=== PATIENT | male | born 1970 | race Caucasian/White ===

== ENCOUNTER 2017-06-12 13:33 | Emergency (ER) | payer MEDICAID ==
[~2017-06-12] VITALS: Ht 172.7 cm; Wt 80.0 kg
[2017-06-12] MEDS ORDERED: SODIUM CHLORIDE 0.9% 1,000 ML IV ONE (15:25)
[2017-06-12 16:08] LABS: BASOPHILS % 0.9 % (0.0-2.0); EOSINOPHILS % 0.6 % (0.0-5.0); HEMATOCRIT. 42.7 % (42.0-52.0); HEMOGLOBIN. 14.3 g/dL (14.0-18.0); LYMPHOCYTES % 35.3 % (20.0-50.0); MEAN CORPUSCULAR HEMOGLOBIN 31.5 pg (28.0-32.0); MEAN CORPUSCULAR VOLUME 94.3 fL (80.0-94.0); MEAN PLATELET VOLUME 7.5 fl (7.4-10.4); MONOCYTES % 3.4 % (2.0-8.0); NEUTROPHILS % 59.8 % (40.0-76.0); PLATELET 213 x1000/uL (130-400); RED BLOOD CELL COUNT 4.52 mill/uL (4.7-6.1); RED CELL DISTRIBUTION WIDTH 14.8 % (11.6-14.6)
[2017-06-12 16:18] LABS: CARBON DIOXIDE 23 mEq/L (21-32); CHLORIDE 110 mEq/L (98-107)
[2017-06-12 16:27] LABS: ETHANOL BLOOD 374 mg/dL
[2017-06-12 18:52] LABS: CLARITY URINE CLEAR (CLEAR); COLOR URINE YELLOW (YELLOW); GLUCOSE URINE NEGATIVE (NEGATIVE); KETONES URINE NEGATIVE (NEGATIVE); LEUKOCYTE ESTERASE URINE NEGATIVE (NEGATIVE); NITRITE URINE NEGATIVE (NEGATIVE); OCCULT BLOOD URINE NEGATIVE (NEGATIVE); PROTEIN URINE NEGATIVE (NEGATIVE); SPECIFIC GRAVITY URINE 1.018 (1.005-1.030); UROBILINOGEN URINE 0.2 E.U./dL (0.2-1.0)
[2017-06-12 19:10] LABS: *AMPHETAMINES SCREEN URINE NEGATIVE (NEGATIVE); *BARBITURATES SCREEN URINE NEGATIVE (NEGATIVE); *BENZODIAZEPINES SCREEN URINE NEGATIVE (NEGATIVE); *COCAINE SCREEN URINE NEGATIVE (NEGATIVE); CANNABINOID URINE SCREEN NEGATIVE (NEGATIVE); METHADONE URINE SCREEN NEGATIVE (NEGATIVE); OPIATES URINE SCREEN NEGATIVE (NEGATIVE); PHENCYCLIDINE URINE SCREEN NEGATIVE (NEGATIVE)
[2017-06-12] MEDS ORDERED: ONDANSETRON HCL 4MG/2ML VIAL IV ONE (19:30)
[2017-06-12 21:30] VITALS: BP 112/59
== END 2017-06-12 21:45 | disposition home or self-care (01) ==
LOC: ER 13:35
DX: F10.229 Alcohol dependence with intoxication, unspecified (principal); E83.51 Hypocalcemia; F17.210 Nicotine dependence, cigarettes, uncomplicated; Y90.9 Presence of alcohol in blood, level not specified
CPT/HCPCS: 36415; 80048; 80305; 81003; 85025; 96361; 96374; 99284; G0482; J2405; J7030

== ENCOUNTER 2017-08-20 22:36 | Emergency (ER) | payer SELFPAY ==
[~2017-08-20] VITALS: Ht 165.1 cm; Wt 68.0 kg
[2017-08-20] MEDS ORDERED: MAGNESIUM/ALUMINUM HYDROXIDE/SIMETHICONE 30ML UDC PO STA (23:42)
[2017-08-20] MEDS ORDERED: ONDANSETRON HCL 4MG/2ML VIAL IV STA (23:42)
[2017-08-20] MEDS ORDERED: FAMOTIDINE 20MG/2ML VIAL IV STA (23:42)
[2017-08-21 02:08] VITALS: BP 118/70
== END 2017-08-21 02:11 | disposition home or self-care (01) ==
LOC: ER 22:55
DX: F10.129 Alcohol abuse with intoxication, unspecified (principal); Y90.9 Presence of alcohol in blood, level not specified
CPT/HCPCS: 99283

== ENCOUNTER 2019-05-22 10:40 | Inpatient (IN) | payer OTHER, MEDICAID ==
[~2019-05-22] VITALS: Ht 167.6 cm; Wt 67.6 kg
[2019-05-22] MEDS ORDERED: LORAZEPAM 2MG/ML CPJ IV ONE (11:00)
[2019-05-22] MEDS ORDERED: CHLORDIAZEPOXIDE 25MG CAPSULE PO ONE (11:00)
[2019-05-22 11:13] LABS: BASOPHILS % 1.3 % (0.0-2.0); EOSINOPHILS % 0.7 % (0.0-5.0); HEMATOCRIT. 26.1 % (42.0-52.0); HEMOGLOBIN. 8.2 g/dL (14.0-18.0); LYMPHOCYTES % 27.1 % (20.0-50.0); MEAN CORPUSCULAR HEMOGLOBIN 22.5 pg (28.0-32.0); MEAN CORPUSCULAR VOLUME 71.7 fL (80.0-94.0); MEAN PLATELET VOLUME 8.3 fl (7.4-10.4); MONOCYTES % 12.1 % (2.0-8.0); NEUTROPHILS % 58.8 % (40.0-76.0); PLATELET 71 x1000/uL (130-400); RED BLOOD CELL COUNT 3.64 mill/uL (4.7-6.1)
[2019-05-22 11:16] LABS: CHLORIDE 93 mEq/L (98-107)
[2019-05-22 11:22] LABS: ETHANOL BLOOD < 10 mg/dL
[2019-05-22 11:41] LABS: PLATELET ESTIMATE DECREASED
[2019-05-22] MEDS ORDERED: POTASSIUM CHLORIDE 20MEQ TABLET SR PO ONE (12:15)
[2019-05-22 12:30] LABS: CLARITY URINE CLOUDY (CLEAR); COLOR URINE ORANGE (YELLOW); KETONES URINE TRACE (NEGATIVE); LEUKOCYTE ESTERASE URINE 1+ (NEGATIVE); NITRITE URINE POSITIVE (NEGATIVE); OCCULT BLOOD URINE NEGATIVE (NEGATIVE); PROTEIN URINE 3+ (NEGATIVE)
[2019-05-22 12:53] LABS: *AMPHETAMINES SCREEN URINE NEGATIVE (NEGATIVE); *BARBITURATES SCREEN URINE NEGATIVE (NEGATIVE)
[2019-05-22 12:56] LABS: *BENZODIAZEPINES SCREEN URINE NEGATIVE (NEGATIVE); *COCAINE SCREEN URINE NEGATIVE (NEGATIVE); CANNABINOID URINE SCREEN NEGATIVE (NEGATIVE); METHADONE URINE SCREEN NEGATIVE (NEGATIVE); OPIATES URINE SCREEN NEGATIVE (NEGATIVE); PHENCYCLIDINE URINE SCREEN NEGATIVE (NEGATIVE)
[2019-05-22] MEDS ORDERED: ACETAMINOPHEN 325MG TABLET PO PRN (14:15)
[2019-05-22] MEDS ORDERED: ONDANSETRON HCL 4MG/2ML INJ IV PRN (14:15)
[2019-05-22] MEDS ORDERED: LORAZEPAM 2MG/ML CPJ IV PRN (14:15)
[2019-05-22] MEDS ORDERED: CLONIDINE 0.1MG TABLET PO PRN (14:15)
[2019-05-22] MEDS ORDERED: MULTIVITAMINS,THER W-MINERALS TABLET PO SCH (16:00)
[2019-05-22] MEDS ORDERED: DEXT 5%/0.45% NACL KCL 10MEQ/L 1,000 ML IV SCH (17:30)
[2019-05-22 22:00] VITALS: BP 122/89
[2019-05-23] VITALS: BP 110/80
[2019-05-23 04:00] VITALS: BP 100/69
[2019-05-23] MEDS ORDERED: ONDANSETRON HCL 4MG/2ML INJ IV PRN (08:30)
[2019-05-23] MEDS ORDERED: ACETAMINOPHEN 325MG TABLET PO PRN (08:30)
[2019-05-23] MEDS ORDERED: CLONIDINE 0.1MG TABLET PO PRN (08:30)
[2019-05-23] MEDS ORDERED: LORAZEPAM 2MG/ML CPJ IV PRN (08:45)
[2019-05-23] MEDS ORDERED: MULTIVITAMINS,THER W-MINERALS TABLET PO SCH (09:00)
[2019-05-23 09:25] LABS: BASOPHILS % 0.7 % (0.0-2.0); EOSINOPHILS % 1.3 % (0.0-5.0); HEMATOCRIT. 24.1 % (42.0-52.0); HEMOGLOBIN. 7.6 g/dL (14.0-18.0); LYMPHOCYTES % 31.4 % (20.0-50.0); MEAN CORPUSCULAR HEMOGLOBIN 22.7 pg (28.0-32.0); MEAN CORPUSCULAR VOLUME 72.2 fL (80.0-94.0); MEAN PLATELET VOLUME 8.5 fl (7.4-10.4); MONOCYTES % 6.2 % (2.0-8.0); NEUTROPHILS % 60.4 % (40.0-76.0); PLATELET 79 x1000/uL (130-400); RED BLOOD CELL COUNT 3.34 mill/uL (4.7-6.1); RED CELL DISTRIBUTION WIDTH 23.7 % (11.6-14.6)
[2019-05-23 09:31] LABS: CHLORIDE 98 mEq/L (98-107)
[2019-05-23] MEDS ORDERED: POTASSIUM CHLORIDE 20MEQ TABLET SR PO SCH (11:00)
[2019-05-23 13:19] VITALS: BP 113/80
== END 2019-05-23 14:10 | disposition home or self-care (01) | DRG 53 ==
LOC: ER 10:40 → UNDOADMIN 12:46 → 5WST 12:46 → ENRESERV 14:01 → SUPCPDRO 14:12 → 6EST 14:16 → ER 15:41 → EDBEDREQSVC 19:25 → EDBEDREQTM 19:50 → ENRESERV 21:29
PROVIDERS: ADMIT Hospitalist; ATTEND Hospitalist
DX: G40.909 Epilepsy, unspecified, not intractable, without status epilepticus (principal); D61.818 Other pancytopenia; D69.6 Thrombocytopenia, unspecified; E83.51 Hypocalcemia; F10.239 Alcohol dependence with withdrawal, unspecified; N39.0 Urinary tract infection, site not specified; Y90.9 Presence of alcohol in blood, level not specified
CPT/HCPCS: 36415; 71045; 80305; 80320; 81003; 93005; 99285; J2060; G0480

== ENCOUNTER 2020-01-05 22:48 | Inpatient (IN) | payer SELFPAY ==
[~2020-01-05] VITALS: Ht 172.7 cm; Wt 66.8 kg
[2020-01-05] MEDS ORDERED: SODIUM CHLORIDE 0.9% 1,000 ML IV ONE (23:12)
[2020-01-05] MEDS ORDERED: LEVETIRACETAM 1000MG/100ML 100 ML IV ONE (23:15)
[2020-01-05] MEDS ORDERED: ONDANSETRON HCL 4MG/2ML INJ IV STA (23:57)
[2020-01-06] MEDS ORDERED: SODIUM CHLORIDE 0.9% 1000ML BAG (SEPSIS BOLUS) IV ONE
[2020-01-06] MEDS ORDERED: CEFTRIAXONE 1 G PREMIX 50 ML IV ONE
[2020-01-06 00:11] LABS: HEMATOCRIT. 24.4 % (42.0-52.0); HEMOGLOBIN. 7.4 g/dL (14.0-18.0); MEAN CORPUSCULAR HEMOGLOBIN 18.7 pg (28.0-32.0); MEAN CORPUSCULAR VOLUME 61.6 fL (80.0-94.0); MEAN PLATELET VOLUME 8.4 fl (7.4-10.4); RED BLOOD CELL COUNT 3.96 mill/uL (4.7-6.1)
[2020-01-06 00:18] LABS: PLATELET 37 x1000/uL (130-400)
[2020-01-06 00:21] LABS: CHLORIDE 85 mEq/L (98-107)
[2020-01-06 00:27] LABS: ETHANOL BLOOD < 10 mg/dL
[2020-01-06 01:09] LABS: PLATELET ESTIMATE DECREASED
[2020-01-06 01:29] LABS: CLARITY URINE CLEAR (CLEAR); COLOR URINE DARK YELLOW (YELLOW); KETONES URINE TRACE (NEGATIVE); LEUKOCYTE ESTERASE URINE TRACE (NEGATIVE); NITRITE URINE NEGATIVE (NEGATIVE); OCCULT BLOOD URINE NEGATIVE (NEGATIVE); PH URINE 8.5 (4.5-8.0); PROTEIN URINE 2+ (NEGATIVE); SPECIFIC GRAVITY URINE 1.015 (1.005-1.030)
[2020-01-06] MEDS ORDERED: CHLORDIAZEPOXIDE 25MG CAPSULE PO ONE (01:30)
[2020-01-06 01:44] LABS: *AMPHETAMINES SCREEN URINE NEGATIVE (NEGATIVE)
[2020-01-06 01:45] LABS: *BARBITURATES SCREEN URINE NEGATIVE (NEGATIVE); *BENZODIAZEPINES SCREEN URINE NEGATIVE (NEGATIVE); *COCAINE SCREEN URINE NEGATIVE (NEGATIVE); METHADONE URINE SCREEN NEGATIVE (NEGATIVE); OPIATES URINE SCREEN NEGATIVE (NEGATIVE)
[2020-01-06 01:46] LABS: CANNABINOID URINE SCREEN NEGATIVE (NEGATIVE); PHENCYCLIDINE URINE SCREEN NEGATIVE (NEGATIVE)
[2020-01-06] MEDS ORDERED: POTASSIUM CHLORIDE INJ 40 MEQ in DEXT 5% WATER 250 ML IV NR (02:15)
[2020-01-06] MEDS ORDERED: POTASSIUM CHLORIDE 20MEQ TABLET SR PO NR (02:15)
[2020-01-06] MEDS ORDERED: CLONIDINE 0.1MG TABLET PO PRN (07:00)
[2020-01-06] MEDS ORDERED: HYDROCODONE/ACETAMINOPHEN 5/325MG TABLET PO PRN (07:00)
[2020-01-06] MEDS ORDERED: LORAZEPAM 2MG/ML CPJ IV PRN (07:00)
[2020-01-06] MEDS ORDERED: ONDANSETRON HCL 4MG/2ML INJ IV PRN (07:00)
[2020-01-06] MEDS ORDERED: MAGNESIUM/ALUMINUM HYDROXIDE/SIMETHICONE 30ML UDC PO PRN (07:00)
[2020-01-06] MEDS: SODIUM CHLORIDE 0.45% 1,000 ML IV SCH ×2 (07:29→19:25)
[2020-01-06] MEDS: ACETAMINOPHEN 325MG TABLET PO PRN (07:57)
[2020-01-06] MEDS: MULTIVITAMINS,THER W-MINERALS TABLET PO SCH (09:00)
[2020-01-06] MEDS: FOLIC ACID 1MG TABLET PO SCH (09:00)
[2020-01-06] MEDS: AZITHROMYCIN 500 MG in DEXT 5% WATER 250 ML IV SCH ×2 (12:26→14:08)
[2020-01-06 12:35] LABS: CHLORIDE 92 mEq/L (98-107)
[2020-01-06] MEDS ORDERED: CEFTRIAXONE 1 G PREMIX 50 ML IV NR (21:15)
[2020-01-07 00:15] VITALS: BP 141/89
[2020-01-07 01:00] VITALS: BP 141/89
[2020-01-07 08:00] VITALS: BP 138/83
[2020-01-07] MEDS: THIAMINE HCL 100MG TABLET PO SCH (09:21)
[2020-01-07] MEDS: MULTIVITAMINS,THER W-MINERALS TABLET PO SCH (09:21)
[2020-01-07] MEDS: SODIUM CHLORIDE 0.45% 1,000 ML IV SCH (09:21)
[2020-01-07] MEDS: FOLIC ACID 1MG TABLET PO SCH (09:21)
[2020-01-07 10:06] LABS: HEMATOCRIT. 24.4 % (42.0-52.0); HEMOGLOBIN. 7.4 g/dL (14.0-18.0); MEAN CORPUSCULAR HEMOGLOBIN 18.7 pg (28.0-32.0); MEAN CORPUSCULAR VOLUME 61.6 fL (80.0-94.0); RED BLOOD CELL COUNT 3.96 mill/uL (4.7-6.1); RED CELL DISTRIBUTION WIDTH 30.1 % (11.6-14.6)
[2020-01-07 10:13] LABS: CHLORIDE 95 mEq/L (98-107)
[2020-01-07 10:16] LABS: LYMPHOCYTES % 31.2 % (20.0-50.0); MONOCYTES % 7.5 % (2.0-8.0); NEUTROPHILS % 59.8 % (40.0-76.0)
[2020-01-07 10:17] LABS: BASOPHILS % 0.5 % (0.0-2.0)
[2020-01-07] MEDS ORDERED: AZITHROMYCIN 250 MG in DEXT 5% WATER 250 ML IV SCH (11:00)
[2020-01-07] MEDS ORDERED: POTASSIUM CHLORIDE 20MEQ TABLET SR PO NR (11:15)
[2020-01-07] MEDS ORDERED: AZITHROMYCIN 500 MG in DEXT 5% WATER 250 ML IV SCH (11:30)
[2020-01-07 12:00] VITALS: BP 133/79
[2020-01-07] MEDS ORDERED: CEFTRIAXONE 1 G PREMIX 50 ML IV SCH ×2 (12:00→21:00)
[2020-01-07 13:13] LABS: MEAN PLATELET VOLUME 8.3 fl (7.4-10.4); PLATELET 57 x1000/uL (130-400)
[2020-01-07] MEDS: PIPERACILLIN/TAZOBACTAM 3.375 G in DEXT 5% WATER 100 ML IV SCH (19:35)
[2020-01-07 20:00] VITALS: BP 126/85
[2020-01-08] VITALS: BP 135/88
[2020-01-08] MEDS: PIPERACILLIN/TAZOBACTAM 3.375 G in DEXT 5% WATER 100 ML IV SCH ×2 (00:44→06:11)
[2020-01-08] MEDS: SODIUM CHLORIDE 0.45% 1,000 ML IV SCH (00:45)
[2020-01-08 04:00] VITALS: BP 135/82
[2020-01-08 08:00] VITALS: BP 129/78
[2020-01-08] MEDS: THIAMINE HCL 100MG TABLET PO SCH (08:02)
[2020-01-08] MEDS: FOLIC ACID 1MG TABLET PO SCH (08:02)
[2020-01-08] MEDS: MULTIVITAMINS,THER W-MINERALS TABLET PO SCH (08:02)
[2020-01-08] MEDS ORDERED: ACETAMINOPHEN 325MG TABLET PO PRN (10:00)
[2020-01-08 12:00] VITALS: BP 111/82
[2020-01-08 12:13] VITALS: BP 111/82
[2020-01-08] MEDS: ACETAMINOPHEN 325MG TABLET PO PRN (12:29)
== END 2020-01-08 01:10 | disposition home or self-care (01) | DRG 720 ==
LOC: ER 22:48 → ENRESERV 01-06 22:33 → 7WST 01-06 23:54 → 5WST 01-07 14:32
PROVIDERS: ADMIT Hospitalist; ATTEND Hospitalist
DX: A41.9 Sepsis, unspecified organism (principal); D61.818 Other pancytopenia; G90.8 Other disorders of autonomic nervous system; G40.909 Epilepsy, unspecified, not intractable, without status epilepticus; I10 Essential (primary) hypertension; E87.6 Hypokalemia; R74.0 Nonspecific elevation of levels of transaminase and lactic acid dehydrogenase [LDH]; F10.10 Alcohol abuse, uncomplicated; Y90.9 Presence of alcohol in blood, level not specified; Z03.818 Encounter for observation for suspected exposure to other biological agents ruled out
CPT/HCPCS: 36415; 71045; 80048; 80053; 80305; 80320; 81003; 82962; 83605; 83880; 84145; 84484; 85025; 87076; 87635; 87804; 93005; 96365; 96366; 96367; 96375; 99291; J0456; J0696; J1953; J2060; J2405; J2543; J3480; J7030; J7060; G0480

== ENCOUNTER 2020-05-25 13:08 | Inpatient (IN) | payer MEDICAID ==
[~2020-05-25] VITALS: Ht 154.9 cm; Wt 67.8 kg
[2020-05-25] MEDS ORDERED: SODIUM CHLORIDE 0.9% 1000ML BAG (SEPSIS BOLUS) IV ONE (14:15)
[2020-05-25] MEDS ORDERED: CEFTRIAXONE 1 G PREMIX 50 ML IV ONE (14:45)
[2020-05-25 15:28] LABS: CHLORIDE 83 mEq/L (98-107)
[2020-05-25 15:32] LABS: INR 1.3; PROTHROMBIN TIME 13.5 sec (9.6-11.0)
[2020-05-25 15:35] LABS: ETHANOL BLOOD 112 mg/dL; HEMATOCRIT. 25.6 % (42.0-52.0); HEMOGLOBIN. 8.3 g/dL (14.0-18.0); MEAN CORPUSCULAR HEMOGLOBIN 22.4 pg (28.0-32.0); MEAN CORPUSCULAR VOLUME 69.3 fL (80.0-94.0); MEAN PLATELET VOLUME 8.7 fl (7.4-10.4); RED CELL DISTRIBUTION WIDTH 27.5 % (11.6-14.6)
[2020-05-25 15:39] LABS: CREATINE KINASE 609 IU/L (39-308)
[2020-05-25 15:44] LABS: PLATELET 40 x1000/uL (130-400)
[2020-05-25 16:07] LABS: CLARITY URINE CLEAR (CLEAR); COLOR URINE DARK YELLOW (YELLOW); KETONES URINE TRACE (NEGATIVE); LEUKOCYTE ESTERASE URINE 1+ (NEGATIVE); NITRITE URINE POSITIVE (NEGATIVE); OCCULT BLOOD URINE 1+ (NEGATIVE); PH URINE 5.5 (4.5-8.0); PROTEIN URINE 2+ (NEGATIVE); SPECIFIC GRAVITY URINE 1.026 (1.005-1.030)
[2020-05-25 16:51] LABS: *BARBITURATES SCREEN URINE NEGATIVE (NEGATIVE); *BENZODIAZEPINES SCREEN URINE NEGATIVE (NEGATIVE); *COCAINE SCREEN URINE NEGATIVE (NEGATIVE)
[2020-05-25 16:52] LABS: *AMPHETAMINES SCREEN URINE NEGATIVE (NEGATIVE); CANNABINOID URINE SCREEN NEGATIVE (NEGATIVE); METHADONE URINE SCREEN NEGATIVE (NEGATIVE); OPIATES URINE SCREEN NEGATIVE (NEGATIVE); PHENCYCLIDINE URINE SCREEN NEGATIVE (NEGATIVE)
[2020-05-25] MEDS ORDERED: POTASSIUM CHLORIDE INJ 40 MEQ in DEXT 5% WATER 250 ML IV NR (17:30)
[2020-05-25 17:52] LABS: NUCLEATED RED BLOOD CELLS 2 /100 WBC
[2020-05-25 17:55] LABS: PLATELET ESTIMATE MARKEDLY DECREASED
[2020-05-25] MEDS ORDERED: ACETAMINOPHEN 500MG TABLET PO ONE (18:30)
[2020-05-25] MEDS ORDERED: ACETAMINOPHEN 650MG/20.3ML UDC PO ONE (20:45)
[2020-05-25] MEDS ORDERED: MORPHINE SULFATE 4 MG/ML CPJ (NOT FOR IM USE) IV ONE (20:45)
[2020-05-25] MEDS ORDERED: CHLORDIAZEPOXIDE 25MG CAPSULE PO NR (21:45)
[2020-05-25 22:00] VITALS: BP 120/80
[2020-05-25] MEDS ORDERED: IPRATROPIUM/ALBUTEROL 0.5-3(2.5)MG/3ML NEB NEB PRN (22:45)
[2020-05-25] MEDS ORDERED: CLONIDINE 0.1MG TABLET PO PRN (22:45)
[2020-05-25] MEDS ORDERED: ONDANSETRON HCL 4MG/2ML INJ IV PRN (22:45)
[2020-05-25] MEDS ORDERED: HYDROCODONE/ACETAMINOPHEN 5/325MG TABLET PO PRN (22:45)
[2020-05-25] MEDS ORDERED: MORPHINE SULFATE 2 MG/ML CPJ (NOT FOR IM USE) IV PRN (22:45)
[2020-05-25] MEDS ORDERED: MAGNESIUM/ALUMINUM HYDROXIDE/SIMETHICONE 30ML UDC PO PRN (22:45)
[2020-05-25] MEDS ORDERED: LORAZEPAM 2MG/ML CPJ IV PRN (22:45)
[2020-05-25] MEDS ORDERED: DOCUSATE SODIUM 100MG CAPSULE PO PRN (22:45)
[2020-05-25] MEDS: SODIUM CHLORIDE 0.9% 1,000 ML IV SCH (23:18)
[2020-05-25] MEDS: ACETAMINOPHEN 325MG TABLET PO PRN (23:45)
[2020-05-26] VITALS: BP 124/72
[2020-05-26] MEDS ORDERED: MVI, ADULT NO.1 10 ML, FOLIC ACID 1 MG, THIAMINE HCL 100 MG in SODIUM CHLORIDE 0.9% 1,0... IV SCH ×4
[2020-05-26 04:00] VITALS: BP 141/90
[2020-05-26 05:02] LABS: CHLORIDE 90 mEq/L (98-107)
[2020-05-26 05:11] LABS: LDL CHOLESTEROL 35 mg/dL (5-100)
[2020-05-26 05:12] LABS: CREATINE KINASE 635 IU/L (39-308); HDL CHOLESTEROL 52 mg/dL (40-59)
[2020-05-26] MEDS: CHLORDIAZEPOXIDE 25MG CAPSULE PO SCH ×2 (05:12→13:36)
[2020-05-26 05:29] LABS: BASOPHILS % 0.4 % (0.0-2.0); HEMATOCRIT. 23.3 % (42.0-52.0); HEMOGLOBIN. 7.4 g/dL (14.0-18.0); LYMPHOCYTES % 19.3 % (20.0-50.0); MEAN CORPUSCULAR HEMOGLOBIN 22.5 pg (28.0-32.0); MEAN CORPUSCULAR VOLUME 71.3 fL (80.0-94.0); MEAN PLATELET VOLUME 8.5 fl (7.4-10.4); MONOCYTES % 14.1 % (2.0-8.0); NEUTROPHILS % 66.2 % (40.0-76.0); RED BLOOD CELL COUNT 3.27 mill/uL (4.7-6.1); RED CELL DISTRIBUTION WIDTH 27.7 % (11.6-14.6)
[2020-05-26] MEDS: ACETAMINOPHEN 325MG TABLET PO PRN ×2 (06:43→12:43)
[2020-05-26 06:58] LABS: PLATELET 30 x1000/uL (130-400)
[2020-05-26 07:44] LABS: SODIUM URINE RANDOM < 5 mEq/L
[2020-05-26 08:00] VITALS: BP 134/90
[2020-05-26] MEDS: SODIUM CHLORIDE 0.9% 1,000 ML IV SCH (08:11)
[2020-05-26] MEDS ORDERED: FOLIC ACID 1MG TABLET PO SCH (09:00)
[2020-05-26] MEDS ORDERED: THIAMINE HCL 100MG TABLET PO SCH (09:00)
[2020-05-26] MEDS ORDERED: MULTIVITAMINS,THER W-MINERALS TABLET PO SCH (09:00)
[2020-05-26] MEDS ORDERED: POTASSIUM CHLORIDE 20MEQ TABLET SR PO NR (11:30)
[2020-05-26 12:00] VITALS: BP 120/87
[2020-05-26] MEDS: PIPERACILLIN/TAZOBACTAM 3.375 G in DEXT 5% WATER 100 ML IV SCH ×2 (12:42→14:56)
[2020-05-26] MEDS: VANCOMYCIN 1 G PREMIX 200 ML IV SCH ×2 (12:51→18:09)
[2020-05-26] MEDS: MAGNESIUM 4 G PREMIX 100 ML IV NR ×2 (12:51→14:55)
[2020-05-26 13:37] LABS: PLATELET ESTIMATE MARKEDLY DECREASED
[2020-05-26] MEDS ORDERED: PIPERACILLIN/TAZOBACTAM 3.375 G/VIAL IV SCH (14:00)
[2020-05-26] MEDS ORDERED: CEFTRIAXONE 1,000 MG in DEXTROSE 5% WATER 50 ML IV SCH (15:00)
[2020-05-26 16:00] VITALS: BP 112/86
[2020-05-26] MEDS ORDERED: MAGNESIUM 2 G PREMIX 50 ML IV NR (16:00)
[2020-05-26 17:40] LABS: CREATINE KINASE MB FRACTION 1.1 ng/mL (0.5-3.6); T4 FREE 1.03 ng/dL (0.76-1.46)
[2020-05-26 17:54] VITALS: BP 100/70
== END 2020-05-26 21:00 | disposition short-term general hospital (02) | DRG 720 ==
LOC: ER 13:20 → 7WST 20:50 → EDBEDREQ 20:59 → EDBEDREQTM 20:59 → EDBEDREQSVC 20:59 → ENRESERV 21:09
PROVIDERS: ADMIT Internal Medicine; ATTEND Internal Medicine
DX: A41.9 Sepsis, unspecified organism (principal); D61.818 Other pancytopenia; E83.42 Hypomagnesemia; E87.1 Hypo-osmolality and hyponatremia; E87.2 Acidosis; E87.6 Hypokalemia; F10.229 Alcohol dependence with intoxication, unspecified; G40.909 Epilepsy, unspecified, not intractable, without status epilepticus; W01.0XXA Fall on same level from slipping, tripping and stumbling without subsequent striking against object, initial encounter; Y90.5 Blood alcohol level of 100-119 mg/100 ml; K74.60 Unspecified cirrhosis of liver; I10 Essential (primary) hypertension; M62.82 Rhabdomyolysis; N39.0 Urinary tract infection, site not specified; S72.002A Fracture of unspecified part of neck of left femur, initial encounter for closed fracture; Y93.89 Activity, other specified; Y92.89 Other specified places as the place of occurrence of the external cause; Y99.8 Other external cause status; Z86.19 Personal history of other infectious and parasitic diseases
CPT/HCPCS: 36415; 71045; 73502; 80053; 80061; 80076; 80305; 80320; 81003; 82550; 82553; 82728; 83036; 83605; 83615; 83735; 83880; 83930; 83935; 84145; 84295; 84300; 84439; 84443; 84481; 84484; 85025; 85379; 87426; 93005; 93970; 96365; 99291; J0696; J2270; J2543; J3370; J3411; J3475; J3480; J3490; J7030; J7060; G0480